=== PATIENT | male | born 1995 | race American Indian/Alaskan Native ===

== ENCOUNTER 2018-05-18 12:29 | Emergency (ER) | payer OTHER ==
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
[2018-05-18] MEDS ORDERED: TYLENOL #3 PO ONE (16:53)
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
[2018-05-18 21:32] VITALS: BP 130/70
== END 2018-05-18 20:44 | disposition home or self-care (01) ==
LOC: ED 12:29
DX: S09.90XA Unspecified injury of head, initial encounter (principal); G44.319 Acute post-traumatic headache, not intractable; M54.5 Low back pain; V49.19XA Passenger injured in collision with other motor vehicles in nontraffic accident, initial encounter; Y93.89 Activity, other specified; Y99.8 Other external cause status; Y92.488 Other paved roadways as the place of occurrence of the external cause
CPT/HCPCS: 70450; 72100